=== PATIENT | female | born 1930 | race Caucasian/White ===

== ENCOUNTER 2016-07-07 17:42 | Emergency (ER) | payer MEDICARE, BC ==
--- NOTE | ~2016-07-07 | CT4 ---
[facility]. [facility] A Service [facility] RADIOLOGY TEXT RESULTS PATIENT: IVETH MELENDEZ LOCATION: SED : 32 UNIT #: [id number] AGE: [address]: Todd Hernandez MD SEX: F ORDER DR: [id number] [place] [id number] E MR#: [id number] Acc #: [id number] NAME: IVETH MELENDEZ. : 1930 SEX: F STUDY DATE/TIME: 07/07/2016 17:48 UNIT: SED ROOM: STUDY DESCRIPTION: CT Abd and Pelv Wo Cont Attending Physician: Todd Hernandez M.D. Ordering Physician: Asim Knutson M.D. Primary Care Physician: Hayley Martin M.D. MEDICAL IMAGING REPORT This report is preliminary unless electronic signature is present. EXAM CT scan of the abdomen and pelvis without contrast. DATE OF EXAM 07/07/2016 HISTORY Generalized weakness, loss of appetite, nausea and dizziness for [address] was performed through the abdomen and pelvis without oral or intravenous contrast administration as per clinician request. NOTE: This CT exam was performed with one or more of the following radiation dose reduction techniques: automatic exposure control, adjustment of mA and/or kV according to patient size, and iterative reconstruction. FINDINGS ABDOMEN: The exam is limited by the lack of oral and intravenous contrast. The liver, spleen and adrenal glands are normal. The pancreas is somewhat atrophic. Small gallstones are seen along the dependent portion of the gallbladder. The kidneys are somewhat atrophic bilaterally. PELVIS FINDINGS: There is colonic diverticulosis without evidence of diverticulitis. The gut is otherwise unremarkable. No adenopathy is seen. There is no free fluid in the abdomen or pelvis. IMPRESSION 1. The exam is limited by the lack of oral and intravenous contrast. 2. Cholelithiasis. 3. Pancreas and kidneys are somewhat atrophic. 4. Diverticulosis. No evidence of diverticulitis. [facility] A Service of [facility] RADIOLOGY TEXT RESULTS PATIENT: IVETH MELENDEZ LOCATION: [facility] : 32 UNIT #: [id number] AGE: [address]: Todd Hernandez MD SEX: F ORDER DR: Dictated by... Jair Breaux M.D. THIS IS AN ELECTRONICALLY VERIFIED REPORT Jair Breaux M.D. at 07/08/2016 1:13 PM BARBARA/cecilia TD: 07/07/2016 22:05 JOB #: [id number] MEDICAL IMAGING REPORT Page 1 of 1
[~2016-07-07 17:42] MED LIST: ATIVAN0.5 M1 PO; B COMPLEX1200 MCG/1 SL; BACTRIM DS TABL1 TA1 PO; BENICAR PO; CITALOPRAM HBR40 MG PO; COZAAR100 MG; COZAAR25 MG; CRESTOR5 MG; DULOXETINE HCL60 MG PO; FOLIC ACID PO; GERITOL COMPLET1 TA1 PO; KCL PO; LASIX; LASIX20 MG PO; LEVOTHROID25 MCG PO; LEVOTHYROXINE25 MCG PO; LEXAPRO; MAGNESIUM GLUC200 MG; OMEGA 3-6-9 11200 MG PO; OXYCONTIN; OYSTER CALCIUM500 MG; REMERON; TOPROL XL; ZINC
[2016-07-07 17:44] LABS: BASOPHIL% 0.3 % (0-2.5); EOSINOPHIL% 0.4 % (0.0-7.0); HEMATOCRIT 36.9 % (35.0-45.0); HEMOGLOBIN 12.3 gm/dL (12.0-16.0); LYMPHOCYTE# 1.4 X10e3 (1.0-3.5); LYMPHOCYTE% 20.8 % (17.0-45.0); MEAN CELL VOLUME 96.3 FL (83-96); MEAN CORPUSCULAR HEMOGLOBIN 32.1 PG (28-34); MEAN CORPUSCULAR HGB CONC 33.4 g/dL (30-36); MEAN PLATELET VOLUME 7.8 FL (6.5-11.5); MONOCYTE# 0.7 X10e3 (0-1.0); MONOCYTE% 10.7 % (3.0-12.0); NEUTROPHIL# 4.7 X10e3 (1.5-7.1); NEUTROPHIL% 67.8 % (40-75); PLATELET COUNT 207 X10e3 (140-420); RED BLOOD COUNT 3.83 X10e (3.90-5.30); RED CELL DISTRIBUTION WIDTH 13.8 % (11.0-15.5); WHITE BLOOD COUNT 6.9 X10e3 (4.0-10.5)
[2016-07-07 17:46] LABS: DIFF IND NO
[2016-07-07 17:52] LABS: POC - CKMB <1.0 ng/mL (0.0-7.9); POC - MYOGLOBIN 76.1 ng/mL (0.0-169.0); POC - TROPONIN <0.05 ng/mL (<=0.05)
[2016-07-07 18:11] LABS: ALBUMIN SERUM 3.5 g/dL (3.5-5.0); BILIRUBIN, DIRECT 0.2 mg/dL (0.0-0.2); BILIRUBIN,INDIRECT 0.5 mg/dL (0.0-0.9); BILIRUBIN,TOTAL 0.7 mg/dL (0.2-2.0); CALCIUM SERUM 8.5 mg/dL (8.4-10.2); GLOM FILT RATE Estimated 51.7 mL/min (>60); POTASSIUM 3.7 mmol/L (3.5-5.1); PROTEIN TOTAL SERUM 6.9 g/dL (6.0-8.3)
[2016-07-07 19:16] LABS: URINE SOURCE CLEAN CATCH
[2016-07-07 19:17] LABS: URINE APPEARANCE HAZY; URINE BILIRUBIN NEG (NEG); URINE BLOOD TRACE-LYSED (NEG); URINE COLOR YELLOW; URINE GLUCOSE NEG (NORM); URINE KETONE NEG (NEG); URINE LEUKOCYTE ESTERASE 3+ (NEG); URINE NITRATE POS (NEG); URINE PH 7.5 (5-8); URINE PROTEIN NEG (NEG)
[2016-07-07 19:19] LABS: CULTURE INDICATED? YES; MICRO INDICATED? YES; URINE BACTERIA 1+ (NEG); URINE MUCUS PRESENT; URINE SQUAMOUS EPITHELIAL CELL OCCAS /[HPF]; URINE WBC 25-50 /[HPF] (0-5)
== END 2016-07-07 19:48 | disposition home or self-care (01) ==
LOC: SED 17:42
PROVIDERS: Emergency Medicine
DX: N39.0 Urinary tract infection, site not specified (principal); R19.7 Diarrhea, unspecified; F41.9 Anxiety disorder, unspecified; F32.9 Major depressive disorder, single episode, unspecified; Z90.49 Acquired absence of other specified parts of digestive tract; Z90.710 Acquired absence of both cervix and uterus
CPT/HCPCS: 36415; 74176; 80048; 80076; 81003; 82553; 83874; 84484; 85025; 87086; 87088; 87186; 96374; 96375; 99284; J2405